=== PATIENT | female | born 1995 | race Caucasian/White ===

== ENCOUNTER 2020-11-26 21:51 | Emergency (ER) | payer OTHER ==
[~2020-11-26] VITALS: Ht 175.3 cm; Wt 136.4 kg
[2020-11-26 22:23] VITALS: TEMP 98.7
[2020-11-27 00:56] LABS: BASO % 0.3 % (0.0-2.0); EOS # 0.2 (0.0-0.7); EOS % 2.1 % (0-4.0); GRAN # 5.9 (1.4-6.5); GRAN % 59.3 % (42.2-75.2); HEMATOCRIT 42.9 % (37.0-47.0); HEMOGLOBIN 14.1 g/dl (12.5-16.0); LYMPH # 3.1 (1.2-3.4); MEAN CELL VOLUME 88 fl (80.0-100.0); MEAN CORPUSCULAR HEMOGLOBIN 29 pg (27.0-31.0); MEAN CORPUSCULAR HGB CONC 33 g/dl (33.0-37.0); MEAN PLATELET VOLUME 9.8 fl (7.4-10.4); MONO # 0.7 (0.1-0.6); PLATELET COUNT 374 K/mm3 (130-400); RED BLOOD COUNT 4.88 M/mm3 (4.10-5.30); REDCELL DISTRIBUTION WIDTH-CV 12.6 % (11.5-14.5)
[2020-11-27 01:06] LABS: ALANINE AMINOTRANSFERASE 25 U/L (4-34); ALBUMIN 4.2 gm/dL (3.5-5.0); ALKALINE PHOSPHATASE 72 U/L (50-136); ANION GAP 5 mmol/L (7-16); AST,SGOT 24 U/L (15-37); BILIRUBIN,TOTAL 0.4 mg/dL (0.0-1.0); BLOOD UREA NITROGEN 14 mg/dL (7-17); CALCIUM 9.2 mg/dL (8.4-10.2); CARBON DIOXIDE 27 mmol/L (22-30); CHLORIDE 107 mmol/L (98-107); CREATININE, serum 0.85 (0.52-1.25); GLUCOSE 95 mg/dL (74-106); POTASSIUM 4.1 mmol/L (3.4-5.0); SODIUM 139 mmol/L (137-145); TOTAL PROTEIN 7.4 gm/dL (6.4-8.2)
[2020-11-27 01:19] LABS: C-REACTIVE PROTEIN 1.4 mg/dL (0.0-0.9); LIPASE 43 U/L (23-300)
[2020-11-27 01:23] LABS: TROPONIN-I < 0.012 ng/mL (0.000-0.035)
[2020-11-27 02:46] VITALS: BP 127/87; PULSE 84
== END 2020-11-27 02:46 | disposition home or self-care (01) ==
LOC: COL.ER 21:51
PROVIDERS: Nurse Practitioner Primary Care
DX: R07.89 Other chest pain (principal); F17.290 Nicotine dependence, other tobacco product, uncomplicated
CPT/HCPCS: J1885

== ENCOUNTER 2021-03-26 18:38 | Emergency (ER) | payer OTHER ==
[~2021-03-26] VITALS: Ht 175.3 cm; Wt 145.5 kg
[2021-03-26 18:56] VITALS: TEMP 98.5
[2021-03-26 21:01] LABS: COLLECTION METHOD CLEAN CATCH
[2021-03-26 21:14] LABS: MUCOUS Present (NOT PRESENT); PH 5 (5-8); URINE APPEARANCE Hazy (CLEAR/HAZY); URINE BACTERIA Rare (NONE SEEN); URINE BILIRUBIN Negative (NEGATIVE); URINE BLOOD 2+ (NEGATIVE); URINE COLOR Yellow (YELLOW); URINE GLUCOSE Negative (NEGATIVE); URINE KETONE Negative (NEGATIVE); URINE LEUKOCYTE ESTERASE 2+ (NEGATIVE); URINE NITRATE Positive (NEGATIVE); URINE PROTEIN(semi-quant) Negative (NEGATIVE); URINE UROBILINOGEN Negative (NEGATIVE)
[2021-03-26] MEDS ORDERED: CIPRO 500MG TA500 MG PO (21:29)
[2021-03-26 21:52] VITALS: BP 138/78; PULSE 72
== END 2021-03-26 21:52 | disposition home or self-care (01) ==
LOC: COL.ER 18:38
PROVIDERS: Student in an Organized Health Care Education/Training Program
DX: N12 Tubulo-interstitial nephritis, not specified as acute or chronic (principal); Z32.02 Encounter for pregnancy test, result negative

== ENCOUNTER 2021-05-11 17:41 | Emergency (ER) | payer OTHER ==
[~2021-05-11] VITALS: Ht 175.3 cm; Wt 143.2 kg
[~2021-05-11 17:41] MED LIST: CIPRO 500MG TA500 MG PO
[2021-05-11 18:32] VITALS: TEMP 98.5
[2021-05-11] MEDS ORDERED: NORCO 325 MG-51 TAB PO (18:57)
[2021-05-11] MEDS ORDERED: CEPHALEXIN500 M1 PO (18:57)
[2021-05-11 19:06] VITALS: BP 142/78; PULSE 76
== END 2021-05-11 19:06 | disposition home or self-care (01) ==
LOC: COL.ER 17:41
DX: I88.9 Nonspecific lymphadenitis, unspecified (principal); J02.9 Acute pharyngitis, unspecified; Z87.891 Personal history of nicotine dependence

== ENCOUNTER 2021-05-22 09:47 | Emergency (ER) | payer SELFPAY ==
[~2021-05-22] VITALS: Ht 175.3 cm; Wt 143.2 kg
[~2021-05-22 09:47] MED LIST changes: +CEPHALEXIN500 M1 PO; +NORCO 325 MG-51 TAB PO
[2021-05-22 10:02] VITALS: TEMP 97.7
[2021-05-22] MEDS ORDERED: PREDNISONE20 MG PO (10:19)
[2021-05-22 10:21] VITALS: BP 126/79; PULSE 76
== END 2021-05-22 10:24 | disposition home or self-care (01) ==
LOC: COL.ER 09:47
DX: R20.2 Paresthesia of skin (principal); F17.200 Nicotine dependence, unspecified, uncomplicated

== ENCOUNTER 2021-05-31 13:19 | Emergency (ER) | payer SELFPAY ==
[~2021-05-31] VITALS: Ht 175.3 cm; Wt 140.9 kg
[~2021-05-31 13:19] MED LIST changes: +PREDNISONE20 MG PO
[2021-05-31 13:30] VITALS: BP 129/78; PULSE 91; TEMP 97.8
[2021-05-31] MEDS ORDERED: RIOMET500 MG/5 M PO (13:35)
[2021-05-31] MEDS ORDERED: ALDACTONE 100M100 MG PO (13:35)
[2021-05-31] MEDS ORDERED: ZOLOFT 100MG100 MG PO (13:36)
== END 2021-05-31 14:28 | disposition home or self-care (01) ==
LOC: COL.ER 13:19
DX: M25.531 Pain in right wrist (principal); M25.532 Pain in left wrist; F17.210 Nicotine dependence, cigarettes, uncomplicated; Z91.040 Latex allergy status

== ENCOUNTER → 2021-06-02 | Outpatient (RCR) | payer OTHER ==
[~2021-06-02] MED LIST changes: +ALDACTONE 100M100 MG PO; +RIOMET500 MG/5 M PO; +ZOLOFT 100MG100 MG PO
== END ==
LOC: WSOH
DX: R20.8 Other disturbances of skin sensation (principal); E28.2 Polycystic ovarian syndrome; F41.8 Other specified anxiety disorders; Z79.899 Other long term (current) drug therapy; Y99.0 Civilian activity done for income or pay

== ENCOUNTER 2021-06-17 14:44 | Outpatient (RCR) | payer OTHER | END 2021-06-30 | disposition home or self-care (01) | LOC: WSOH | DX: R20.8 Other disturbances of skin sensation (principal); Y99.0 Civilian activity done for income or pay; E28.2 Polycystic ovarian syndrome; F41.8 Other specified anxiety disorders ==

== ENCOUNTER 2021-11-07 21:07 | Emergency (ER) | payer SELFPAY ==
[~2021-11-07] VITALS: Ht 175.3 cm; Wt 143.6 kg
[2021-11-07 21:09] VITALS: BP 158/90; TEMP 98.5
[2021-11-07 21:55] VITALS: PULSE 90
== END 2021-11-07 21:55 | disposition home or self-care (01) ==
LOC: COL.ER 21:07
DX: U07.1 COVID-19 (principal); F17.200 Nicotine dependence, unspecified, uncomplicated; E66.9 Obesity, unspecified; Z91.040 Latex allergy status; Z28.310 Unvaccinated for COVID-19

== ENCOUNTER 2021-11-24 20:31 | Emergency (ER) | payer SELFPAY ==
[~2021-11-24] VITALS: Ht 177.8 cm; Wt 136.4 kg
[2021-11-24 20:40] VITALS: TEMP 97.4
[2021-11-24 21:20] LABS: BASO % 0.2 % (0.0-2.0); EOS # 0.2 K/mm3 (0.0-0.7); EOS % 2.1 % (0.0-4.0); GRAN # 6.9 K/mm3 (1.4-6.5); GRAN % 63.8 % (42.2-75.2); HEMATOCRIT 48.6 % (37.0-47.0); HEMOGLOBIN 16.2 g/dl (12.5-16.0); LYMPH % 28.2 % (20.0-51.0); MEAN CELL VOLUME 86 fl (80.0-100.0); MEAN CORPUSCULAR HEMOGLOBIN 29 pg (27-31); MEAN CORPUSCULAR HGB CONC 33 g/dl (33.0-37.0); MEAN PLATELET VOLUME 9.6 fl (7.4-10.4); MONO # 0.6 K/mm3 (0.1-0.6); MONO % 5.3 % (1.7-9.3); PLATELET COUNT 393 K/mm3 (130-400); RED BLOOD COUNT 5.66 M/mm3 (4.10-5.30); REDCELL DISTRIBUTION WIDTH-CV 12.3 % (11.5-14.5)
[2021-11-24 21:35] LABS: ALANINE AMINOTRANSFERASE 29 U/L (0-55); ALBUMIN 4.3 gm/dL (3.5-5.0); ALKALINE PHOSPHATASE 81 U/L (40-150); ANION GAP 15 mmol/L (7-16); AST,SGOT 12 U/L (5-34); BILIRUBIN,TOTAL 0.5 mg/dL (0.2-1.2); BLOOD UREA NITROGEN 13 mg/dL (7-19); CARBON DIOXIDE 24 mmol/L (22-29); CHLORIDE 103 mmol/L (98-107); GLUCOSE 119 mg/dL (70-99); POTASSIUM 3.9 mmol/L (3.5-4.5); SODIUM 142 mmol/L (136-145); TOTAL PROTEIN 7.7 gm/dL (6.2-8.1)
[2021-11-24 21:56] LABS: TSH w REFLEX 1.929 uIU/mL (0.350-4.940)
[2021-11-24 21:57] LABS: TROPONIN-I < 0.010 ng/mL (0.00-0.033)
[2021-11-24 22:45] VITALS: BP 127/73; PULSE 78
== END 2021-11-24 22:50 | disposition home or self-care (01) ==
LOC: COL.ER 20:31
PROVIDERS: Emergency Medicine
DX: R53.83 Other fatigue (principal); R00.0 Tachycardia, unspecified; R00.2 Palpitations; F17.210 Nicotine dependence, cigarettes, uncomplicated; Z91.040 Latex allergy status; Z28.310 Unvaccinated for COVID-19
CPT/HCPCS: J7120